=== PATIENT | female | born 1995 | race Two or more races ===

== ENCOUNTER 2016-11-09 16:44 | Inpatient (IN) | payer BC, OTHER ==
[~2016-11-09] VITALS: Ht 170.2 cm; Wt 60.9 kg
[2016-11-09] MEDS ORDERED: LORAZEPAM INJ 2 MG/ML VIAL IVP ONE (17:30)
[2016-11-09 17:32] LABS: BASOPHILS # (AUTO) 0.1 /CMM (0.0-0.2); BASOPHILS % (AUTO) 1.7 % (0.0-2.0); DIFF TOTAL % 100 %; EOSINOPHILS % (AUTO) 0.5 % (0.0-6.0); HEMATOCRIT 40 % (33-45); HEMOGLOBIN 13.2 g/dL (11.5-14.8); LYMPHOCYTES # (AUTO) 1.6 /CMM (0.8-4.8); LYMPHOCYTES % (AUTO) 21.4 % (20.0-44.0); MEAN CORPUSCULAR HEMOGLOBIN 31 PG (26.0-33.0); MEAN CORPUSCULAR HGB CONC 33 g/dl (31.0-36.0); MEAN CORPUSCULAR VOLUME 93 fL (82-100); MONOCYTES # (AUTO) 0.4 /CMM (0.1-1.30); NEUTROPHILS # (AUTO) 5.4 /CMM (1.8-8.9); NEUTROPHILS % (AUTO) 71.4 % (43.0-81.0); PLATELET COUNT (AUTO) 296 /CMM (150-450); RED BLOOD CELL COUNT(AUTO) 4.24 MIL/uL (4.0-5.2); WHITE BLOOD COUNT (AUTO) 7.5 K/uL (4.3-11.0)
[2016-11-09 17:45] LABS: ANION GAP 15 (5-14); CALCIUM, SERUM 8.5 mg/dL (8.5-10.1); CARBON DIOXIDE 25 mmol/L (21-32); CHLORIDE 103 mmol/L (98-107); CREATININE 0.7 mg/dL (0.6-1.3); GFR 104 mL/min (>60); GLUCOSE 94 mg/dL (74-106); POTASSIUM 3.8 mmol/L (3.5-5.1); SODIUM SERUM 139 mmol/L (136-145); UREA NITROGEN, BLOOD 11 mg/dL (7-18)
[2016-11-09 17:48] LABS: INR 1.05 (0.87-1.13)
[2016-11-09] MEDS ORDERED: LORAZEPAM INJ 2 MG/ML VIAL ONE ×2 (17:49→22:12)
[2016-11-09] MEDS ORDERED: IV SET PRIMARY 1 EA INFUS.SET MC ONE ×2 (17:49→21:28)
[2016-11-09] MEDS ORDERED: IV NS 0.9% 500 ML IV ONE (17:49)
[2016-11-09 17:50] LABS: ACETAMINOPHEN 30 ug/ml (10-30); ALANINE AMINOTRANSFERASE 20 U/L (12-78); ALBUMIN 3.6 g/dL (3.4-5.0); ASPARTATE AMINOTRANSFERASE 18 U/L (15-37); BILIRUBIN,DIRECT 0.2 mg/dL (0.0-0.2); BILIRUBIN,TOTAL 1.7 mg/dL (0.2-1.0); INDIRECT BILIRUBIN 1.5 mg/dL (0.0-1.1); SALICYLATE < 0.2 mg/dL (2.8-20.0); TOTAL PROTEIN, SERUM 7.6 g/dL (6.4-8.2)
[2016-11-09] MEDS ORDERED: IV NS 0.9% 500 ML BAG IV ONE (18:30)
[2016-11-09] MEDS ORDERED: ACETYLCYSTEINE IV 6,000 MG/30 ML VIAL IV ONE (19:00)
[2016-11-09] MEDS ORDERED: D5W IV ONE (20:00)
[2016-11-09] MEDS ORDERED: ACETYLCYSTEINE IV ONE (20:00)
[2016-11-09] MEDS ORDERED: IV SET PRIMARY PUMP SET 1 EA INFUS.SET MC ONE (20:17)
[2016-11-09] MEDS ORDERED: CEFAZOLIN 1 GM in IV D5W 50 ML IV ONE (20:30)
[2016-11-09] MEDS ORDERED: IV D5W 100 ML IV ONE (21:28)
[2016-11-09] MEDS ORDERED: CEFAZOLIN 1 GM ONE (21:28)
[2016-11-09 21:30] VITALS: BP 109/56
[2016-11-09] MEDS: ACETYLCYSTEINE IV ONE ×2 (21:38→23:53)
[2016-11-09] MEDS: D5W IV ONE ×2 (21:38→23:53)
[2016-11-09] MEDS: ACETYLCYSTEINE IV SCH (21:39)
[2016-11-09] MEDS: D5W IV SCH (21:39)
[2016-11-09] MEDS ORDERED: MAGNESIUM HYDROXIDE 30 ML UDC PO PRN (22:30)
[2016-11-09] MEDS ORDERED: Z GUARD REMEDY 2 OZ OINT TP PRN (22:30)
[2016-11-09] MEDS ORDERED: ACETYLCYSTEINE IV 0 MG in IV D5W 1,000 ML IV SCH (22:30)
[2016-11-09] MEDS ORDERED: MAG HYDROX/AL HYDROX/SIMETH 30 ML UDC PO PRN (22:30)
[2016-11-09] MEDS ORDERED: LORAZEPAM INJ 2 MG/ML VIAL IV PRN (22:30)
[2016-11-09] MEDS ORDERED: ACETYLCYSTEINE IV 0 MG in IV D5W 500 ML IV SCH (22:30)
[2016-11-09] MEDS ORDERED: ONDANSETRON HCL/PF 4 MG/2 ML VIAL IVP PRN (22:30)
[2016-11-09] MEDS ORDERED: SECONDARY IV SET 1 EA INFUS.SET MC ONE (22:41)
[2016-11-09] MEDS ORDERED: HALOPERIDOL LACTATE INJ 5 MG/ML VIAL ONE (23:45)
[2016-11-10] VITALS (22 sets, daily range): BP systolic 89–132; BP diastolic 52–87
[2016-11-10] MEDS ORDERED: HALOPERIDOL DECANOATE IM 100 MG/ML AMPUL IM ONE
[2016-11-10] MEDS: ACETYLCYSTEINE IV SCH (04:11)
[2016-11-10] MEDS: D5W IV SCH (04:11)
[2016-11-10] MEDS ORDERED: CEFAZOLIN 1 GM ONE (05:01)
[2016-11-10] MEDS ORDERED: IV SET PRIMARY PUMP SET 1 EA INFUS.SET MC ONE ×2 (05:02→11:14)
[2016-11-10] MEDS ORDERED: IV D5W 50 ML IV ONE (05:02)
[2016-11-10 05:14] LABS: BASOPHILS % (AUTO) 0.2 % (0.0-2.0); DIFF TOTAL % 100 %; EOSINOPHILS % (AUTO) 0.4 % (0.0-6.0); HEMATOCRIT 36 % (33-45); HEMOGLOBIN 12.1 g/dL (11.5-14.8); LYMPHOCYTES # (AUTO) 1.9 /CMM (0.8-4.8); LYMPHOCYTES % (AUTO) 18.6 % (20.0-44.0); MEAN CORPUSCULAR HEMOGLOBIN 32 PG (26.0-33.0); MEAN CORPUSCULAR HGB CONC 34 g/dl (31.0-36.0); MEAN CORPUSCULAR VOLUME 93 fL (82-100); MONOCYTES # (AUTO) 0.6 /CMM (0.1-1.30); MONOCYTES % (AUTO) 6.1 % (2.0-12.0); NEUTROPHILS # (AUTO) 7.7 /CMM (1.8-8.9); NEUTROPHILS % (AUTO) 74.7 % (43.0-81.0); PLATELET COUNT (AUTO) 277 /CMM (150-450); RED BLOOD CELL COUNT(AUTO) 3.81 MIL/uL (4.0-5.2); WHITE BLOOD COUNT (AUTO) 10.3 K/uL (4.3-11.0)
[2016-11-10 05:38] LABS: ALBUMIN 3.1 g/dL (3.4-5.0); BILIRUBIN,TOTAL 1.6 mg/dL (0.2-1.0); CALCIUM, SERUM 7.9 mg/dL (8.5-10.1); CREATININE 0.7 mg/dL (0.6-1.3); PHOSPHORUS 2.8 mg/dL (2.5-4.9); POTASSIUM 3.3 mmol/L (3.5-5.1); TOTAL PROTEIN, SERUM 6.7 g/dL (6.4-8.2)
[2016-11-10] MEDS: CEFAZOLIN 1 GM in IV NS 0.9% 50 ML IV SCH ×3 (05:40→21:13)
[2016-11-10 05:46] LABS: THYROID STIMULATING HORMONE 1.931 uIU/mL (0.358-3.74)
[2016-11-10] MEDS ORDERED: FLUO40CA49 PO (08:44)
[2016-11-10 10:47] LABS: KETONES,URINE TRACE (NEGATIVE); LEUKOCYTE ESTERASE ,URINE NEGATIVE (NEGATIVE)
[2016-11-10] MEDS ORDERED: POTASSIUM CHLORIDE 20 MEQ TAB.PRT.SR PO SCH (11:00)
[2016-11-10 11:17] LABS: ADD UA MICROSCOPIC YES
[2016-11-10] MEDS: Magnesium 1GM/D5W 100ML PREMIX 100 ML IV SCH ×4 (11:19→14:29)
[2016-11-10 11:21] LABS: ADD URINE CULTURE NO; RBC,URINE 0-2 /HPF (0-2); WBC,URINE 0-2 /HPF (0-3)
[2016-11-10 20:33] LABS: ALBUMIN 3.3 g/dL (3.4-5.0); BILIRUBIN,DIRECT 0.3 mg/dL (0.0-0.2); BILIRUBIN,TOTAL 1.4 mg/dL (0.2-1.0); INDIRECT BILIRUBIN 1.1 mg/dL (0.0-1.1); TOTAL PROTEIN, SERUM 7.1 g/dL (6.4-8.2)
[2016-11-11] VITALS: BP 108/55
[2016-11-11 04:00] VITALS: BP 92/52
[2016-11-11] MEDS: CEFAZOLIN 1 GM in IV NS 0.9% 50 ML IV SCH ×2 (05:27→13:52)
[2016-11-11 08:00] VITALS: BP 123/76
[2016-11-11 08:22] LABS: CALCIUM, SERUM 8.3 mg/dL (8.5-10.1); CREATININE 0.7 mg/dL (0.6-1.3); POTASSIUM 4.4 mmol/L (3.5-5.1)
[2016-11-11 12:00] VITALS: BP 124/58
[2016-11-11 16:00] VITALS: BP 126/80
[2016-11-11] MEDS ORDERED: OLANZAPINE 10 MG VIAL IM PRN (16:30)
[2016-11-11] MEDS ORDERED: OLANZAPINE 2.5 MG TABLET PO PRN (16:30)
[2016-11-11] MEDS ORDERED: OLANZAPINE 5 MG TABLET PO SCH (18:00)
[2016-11-11 20:00] VITALS: BP 108/61
[2016-11-11] MEDS: ANCEF 1 GM/50 ML D5W IV SCH ×2 (21:04)
[2016-11-12] VITALS: BP 103/59
[2016-11-12 04:00] VITALS: BP 102/52
[2016-11-12] MEDS ORDERED: CEFAZOLIN 1 GM ONE (05:43)
[2016-11-12] MEDS ORDERED: IV D5W 50 ML IV ONE (05:52)
[2016-11-12] MEDS: ANCEF 1 GM/50 ML D5W IV SCH ×4 (06:01→12:36)
[2016-11-12 07:34] LABS: CALCIUM, SERUM 8.9 mg/dL (8.5-10.1); CREATININE 0.7 mg/dL (0.6-1.3); POTASSIUM 4.4 mmol/L (3.5-5.1)
[2016-11-12 08:00] VITALS: BP 106/68
[2016-11-12] MEDS ORDERED: IV SET PRIMARY PUMP SET 1 EA INFUS.SET MC ONE (10:21)
== END 2016-11-12 15:55 | disposition home or self-care (01) | DRG 918 ==
LOC: EDBD 16:49 → ER 16:49 → TELE 20:31 → ICU 23:50 → TELE-TD 11-10 19:38 → MEDSG1 11-12 10:08
PROVIDERS: ADMIT Contractor; ATTEND Contractor
PROC: 0HQEXZZ Repair Left Lower Arm Skin, External Approach (ICD-10-PCS; principal; 2016-11-09)
DX: T39.1X2A Poisoning by 4-Aminophenol derivatives, intentional self-harm, initial encounter (principal); R17 Unspecified jaundice; S61.512A Laceration without foreign body of left wrist, initial encounter; Z91.5 Personal history of self-harm; Y92.009 Unspecified place in unspecified non-institutional (private) residence as the place of occurrence of the external cause; F32.9 Major depressive disorder, single episode, unspecified; X78.9XXA Intentional self-harm by unspecified sharp object, initial encounter
CPT/HCPCS: 36415; 80048-TC; 80053-TC; 80061-TC; 80076-TC; 81000-TC; 83735-TC; 84100-TC; 84443-TC; 85025-TC; 85730-TC; 87081-TC; A4216; A4606; A6402; G0480; G6039-TC; J0132; J0690; J1630; J2060; J3475; J3490; J7040; J7060; J7070; Z7610

== ENCOUNTER 2016-11-20 21:01 | Emergency (ER) | payer OTHER ==
[~2016-11-20] VITALS: Ht 170.2 cm; Wt 54.4 kg
[~2016-11-20 21:01] MED LIST: FLUO40CA49 PO
[2016-11-20 22:42] VITALS: BP 126/79
== END 2016-11-20 21:50 | disposition home or self-care (01) ==
LOC: ER 21:05
DX: S61.512D Laceration without foreign body of left wrist, subsequent encounter (principal)
CPT/HCPCS: 99281; A4606; Z7610; Z7502